=== PATIENT | female | born 1995 | race Two or more races ===

== ENCOUNTER → 2022-07-11 | Outpatient (REF) | payer OTHER | LOC: M PLALAB 14:54 | PROVIDERS: ATTEND Advanced Practice Midwife | DX: Z34.91 Encounter for supervision of normal pregnancy, unspecified, first trimester (principal) ==

== ENCOUNTER → 2022-07-11 | Outpatient (CLI) | payer OTHER ==
[2022-07-11 17:40] LABS: BASO % 0.4 % (0.0-1.0); EOS # 0.1 10^3/uL (0.0-0.5); EOS % 1.3 % (0.0-3.0); HEMATOCRIT 40.1 % (36.0-47.0); HEMOGLOBIN 13.5 g/dl (12.0-15.5); LYMPH # 1.2 10^3/uL (1.5-5.0); MEAN CORPUSCULAR HEMOGLOBIN 30.8 pg (27.0-33.0); MEAN CORPUSCULAR HGB CONC 33.7 g/dl (32.0-36.5); MEAN CORPUSCULAR VOLUME 91.6 fl (80.0-96.0); MONO # 0.5 10^3/uL (0.0-0.8); MONO % 6.3 % (2.0-8.0); NEUTROPHILS % 76.6 % (36.0-66.0); PLATELET COUNT, AUTOMATED 168 10^3/uL (150-450); RED BLOOD COUNT 4.38 10^6/uL (4.00-5.40); WHITE BLOOD COUNT 7.8 10^3/uL (4.0-10.0)
[2022-07-11 19:40] LABS: HEPATITIS C VIRUS ABY INDEX < 0.0 INDEX (<0.8); HIV 1&2 SCREEN CENTAUR NEGATIVE (NEGATIVE)
[2022-07-11 20:59] LABS: GC DNA AMPLIFICATION NEGATIVE (NEGATIVE)
== END ==
LOC: M PLALAB 15:04
PROVIDERS: ATTEND Advanced Practice Midwife
DX: Z34.91 Encounter for supervision of normal pregnancy, unspecified, first trimester (principal); Z3A.00 Weeks of gestation of pregnancy not specified

== ENCOUNTER → 2022-08-27 | Outpatient (CLI) | payer OTHER | LOC: M WHC 13:14 | PROVIDERS: ATTEND Obstetrics & Gynecology | DX: Z34.92 Encounter for supervision of normal pregnancy, unspecified, second trimester (principal) ==

== ENCOUNTER → 2022-09-30 | Outpatient (CLI) | payer OTHER | LOC: M WHC 13:32 | PROVIDERS: ATTEND Obstetrics & Gynecology | DX: Z36.89 Encounter for other specified antenatal screening (principal) ==

== ENCOUNTER → 2022-11-07 | Outpatient (CLI) | payer OTHER ==
[2022-11-07 17:32] LABS: HEMATOCRIT 34.3 % (36.0-47.0); HEMOGLOBIN 10.7 g/dl (12.0-15.5); MEAN CORPUSCULAR HEMOGLOBIN 28.3 pg (27.0-33.0); MEAN CORPUSCULAR HGB CONC 31.2 g/dl (32.0-36.5); MEAN CORPUSCULAR VOLUME 90.7 fl (80.0-96.0); PLATELET COUNT, AUTOMATED 163 10^3/uL (150-450); RED BLOOD COUNT 3.78 10^6/uL (4.00-5.40); WHITE BLOOD COUNT 7.3 10^3/uL (4.0-10.0)
[2022-11-07 18:59] LABS: GC DNA AMPLIFICATION NEGATIVE (NEGATIVE)
== END ==
LOC: M PLALAB 13:20
PROVIDERS: ATTEND Obstetrics & Gynecology
DX: Z34.92 Encounter for supervision of normal pregnancy, unspecified, second trimester (principal)

== ENCOUNTER → 2022-12-18 | Outpatient (REF) | payer OTHER | LOC: M PLALAB 15:54 | PROVIDERS: ATTEND Advanced Practice Midwife | DX: Z34.83 Encounter for supervision of other normal pregnancy, third trimester (principal) ==

== ENCOUNTER 2023-01-22 14:15 | Inpatient (IN) | payer OTHER ==
[~2023-01-22] VITALS: Ht 165.1 cm; Wt 89.4 kg
[2023-01-22] VITALS (8 sets, daily range): BP systolic 123–191; BP diastolic 70–94
[2023-01-22] MEDS ORDERED: TRANEXAMIC ACID INJection 1,000 MG in NS 100 ML IV PRN (15:25)
[2023-01-22] MEDS ORDERED: LIDOCAINE 1% MDV 20ML VIAL INFIL PRN (15:25)
[2023-01-22] MEDS ORDERED: miSOPROStol 50MCG 1/2 TABLET PO SCH (15:25)
[2023-01-22 15:59] LABS: HEMATOCRIT 32.8 % (36.0-47.0); HEMOGLOBIN 10.2 g/dl (12.0-15.5); MEAN CORPUSCULAR HEMOGLOBIN 25.2 pg (27.0-33.0); MEAN CORPUSCULAR HGB CONC 31.1 g/dl (32.0-36.5); PLATELET COUNT, AUTOMATED 139 10^3/uL (150-450); RED BLOOD COUNT 4.05 10^6/uL (4.00-5.40); WHITE BLOOD COUNT 7.5 10^3/uL (4.0-10.0)
[2023-01-22] MEDS ORDERED: OMEP10CASR PO (16:52)
[2023-01-22] MEDS ORDERED: PRENTAB9 PO (16:52)
[2023-01-22] MEDS ORDERED: HOME MED LIST COMPLETE! XX SCH (16:55)
[2023-01-22 17:49] LABS: TOTAL PROTEIN,RANDOM URINE 8.7 MG/DL (0.0-14.0)
[2023-01-22 17:54] LABS: CREATININE,RANDOM URINE 48.5 MG/DL
[2023-01-22] MEDS ORDERED: LR 1,000 ML IV SCH (21:25)
[2023-01-22] MEDS ORDERED: OXYTOCIN DRIP 30 UNITS in IV 1 EA IV SCH (21:25)
[2023-01-22] MEDS ORDERED: BUTORPHANOL 2 MG/ML 1ML VIAL IV ONE (22:55)
[2023-01-22] MEDS ORDERED: PROMETHAZINE 25MG/ML 1ML VIAL IV ONE (22:55)
[2023-01-23] VITALS (37 sets, daily range): BP systolic 105–182; BP diastolic 59–109
[2023-01-23] MEDS ORDERED: EPIDURAL/PCA KEYS XX PRN (02:10)
[2023-01-23] MEDS ORDERED: NALOXONE INJ 0.4MG/1ML VIAL IV PRN (02:10)
[2023-01-23] MEDS ORDERED: FENTANYL/ROPIVACAINE/NACL BAG 100 ML EPIDURAL SCH (02:10)
[2023-01-23] MEDS ORDERED: diphenhydrAMINE 50MG/ML VIAL IV PRN (02:10)
[2023-01-23] MEDS ORDERED: LR 500 ML IV PRN (02:10)
[2023-01-23] MEDS ORDERED: ONDANSETRON 4MG 2ML VIAL IV PRN (02:10)
[2023-01-23] MEDS ORDERED: ePHEDrine SULFATE 25 MG/5 ML(5MG/ML) SYRINGE IVP PRN (02:10)
[2023-01-23] MEDS ORDERED: DIBUCAINE 1% OINTMENT 30GM TOP PRN (06:05)
[2023-01-23] MEDS ORDERED: ACETAMINOPHEN TAB 650MG DOSE (2X325MG) PO PRN (06:05)
[2023-01-23] MEDS ORDERED: IBUPROFEN 600MG TAB PO PRN (06:05)
[2023-01-23] MEDS ORDERED: OXYTOCIN DRIP 30 UNITS in IV 1 EA IV SCH (06:05)
[2023-01-23] MEDS ORDERED: METHYLERGONOVINE MALEATE 0.2 MG TAB PO PRN (06:05)
[2023-01-23] MEDS ORDERED: ACETAMINOPHEN 500 MG TAB PO PRN (06:05)
[2023-01-23] MEDS ORDERED: DOCUSATE SODIUM 100MG CAPSULE PO PRN (06:05)
[2023-01-23] MEDS ORDERED: RHOGAM 300MCG (1500IU) INJ IM SCH (06:05)
[2023-01-23] MEDS ORDERED: ANUSOL HC CREAM 30GM TOP PRN (06:05)
[2023-01-23] MEDS ORDERED: MOM 30ML SUSPENSION UDC PO PRN (06:05)
[2023-01-23 06:21] LABS: CORD GAS ABE V -5.4; CORD GAS HCO3 V 21.3 MEQ/L; CORD GAS O2 SAT V 67.8 %; CORD GAS PCO2 V 45.6 mmHg; CORD GAS PH V 7.288 UNITS; CORD GAS PO2 V 31.1 mmHg; CORD GAS SBC V 19.4 MEQ/L; CORD GAS TCO2 V 22.7 MEQ/L
[2023-01-23 06:23] LABS: CORD GAS ABE A -9.8; CORD GAS HCO3 A 20.4 MEQ/L; CORD GAS O2 SAT A 78.4 %; CORD GAS PH A 7.136 UNITS; CORD GAS PO2 A 43.8 mmHg; CORD GAS SBC A 16.5 MEQ/L; CORD GAS TCO2 A 22.3 MEQ/L
[2023-01-23] MEDS ORDERED: LABETALOL 100MG/20ML VIAL IV STA (07:03)
[2023-01-23] MEDS: PRENATAL VITAMINS CHEWABLE TABLET PO SCH (10:04)
[2023-01-23] MEDS: IBUPROFEN 800 MG TAB PO PRN (21:15)
[2023-01-24] MEDS: IBUPROFEN 800 MG TAB PO PRN (06:04)
[2023-01-24] MEDS: PRENATAL VITAMINS CHEWABLE TABLET PO SCH (09:04)
[2023-01-25] MEDS ORDERED: MEASLES,MUMPS,RUBELLA VACCINE INJ (MMR-II) SC.IMMUN ONE (09:00)
== END 2023-01-24 17:57 | disposition home or self-care (01) | DRG 560 ==
LOC: M LDI 14:15 → M OBS 01-23 08:40
PROVIDERS: ADMIT Obstetrics & Gynecology; ATTEND Obstetrics & Gynecology
PROC: 3E0P7GC Introduction of Other Therapeutic Substance into Female Reproductive, Via Natural or Artificial Opening (ICD-10-PCS; 2023-01-22)
PROC: 10E0XZZ Delivery of Products of Conception, External Approach (ICD-10-PCS; principal; 2023-01-23)
DX: O48.0 Post-term pregnancy (principal); Z37.0 Single live birth; Z3A.40 40 weeks gestation of pregnancy

== ENCOUNTER → 2023-05-29 | Outpatient (REF) | payer OTHER ==
[~2023-05-29] MED LIST: OMEP10CASR PO; PRENTAB9 PO
== END ==
LOC: M SFHCWAGY 17:12
PROVIDERS: ATTEND Obstetrics & Gynecology
DX: Z12.4 Encounter for screening for malignant neoplasm of cervix (principal)